=== PATIENT | female | born 1975 | race Caucasian/White ===

== ENCOUNTER 2016-11-27 12:06 | Emergency (ER) | payer MEDICAID ==
[~2016-11-27] VITALS: Ht 160 cm; Wt 111.7 kg
[~2016-11-27 12:06] MED LIST: ACET325T14 PO; DIPH25CA61 PO; DOCU-30 PO; HYDR-3240 PO; IBUP200C PO; MAGN84TA6 PO; OXYC-302 PO; POTA10TA11 PO; ROPI5TAB2 PO; SENN-1 PO; SIME80TA14 PO
[2016-11-27 12:14] VITALS: BP 177/107
[2016-11-27] MEDS ORDERED: KETOROLAC 30 MG/1 ML IM ONE (13:00)
[2016-11-27] MEDS ORDERED: KETOROLAC 30 MG/1 ML ONE (13:13)
== END 2016-11-27 14:25 | disposition home or self-care (01) ==
LOC: ED 14:10
DX: M25.562 Pain in left knee (principal); S83.92XA Sprain of unspecified site of left knee, initial encounter; G43.909 Migraine, unspecified, not intractable, without status migrainosus; Z88.0 Allergy status to penicillin; Z90.49 Acquired absence of other specified parts of digestive tract; Z88.8 Allergy status to other drugs, medicaments and biological substances; Z90.710 Acquired absence of both cervix and uterus; Z88.6 Allergy status to analgesic agent; X58.XXXA Exposure to other specified factors, initial encounter; Y93.89 Activity, other specified; Y99.8 Other external cause status; Y92.89 Other specified places as the place of occurrence of the external cause
CPT/HCPCS: 73564; 96372; 99284; J1885

== ENCOUNTER 2019-08-27 08:27 | Emergency (ER) | payer MEDICAID ==
[~2019-08-27] VITALS: Ht 160 cm; Wt 124.4 kg
[~2019-08-27 08:27] MED LIST changes: +DOCU-131 PO; -DOCU-30 PO; +IBUP-1623 PO; -IBUP200C PO; -ROPI5TAB2 PO; +ROPI5TAB4 PO; -SENN-1 PO; +SENN-92 PO
[2019-08-27 08:36] VITALS: BP 130/99
== END 2019-08-27 10:11 | disposition home or self-care (01) ==
LOC: ED 08:59
DX: J00 Acute nasopharyngitis [common cold] (principal); I11.9 Hypertensive heart disease without heart failure; E11.9 Type 2 diabetes mellitus without complications
CPT/HCPCS: 71045; 93005; 99284

== ENCOUNTER 2020-08-23 10:07 | Emergency (ER) | payer MEDICAID ==
[~2020-08-23] VITALS: Ht 160 cm; Wt 121.0 kg
[~2020-08-23 10:07] MED LIST changes: +HYDR-1067 PO; -HYDR-3240 PO; -OXYC-302 PO; +OXYC1TAB14 PO
--- NOTE | 2020-08-23 10:17 | NUR ---
EKG IN TRIAGE
--- NOTE | 2020-08-23 11:00 | NUR ---
NO ANSWER FROM LOBBY
--- NOTE | 2020-08-23 11:20 | NUR ---
assumed care of pt. pt here for c/o s/o pain/tingling sensation to R hand that started 3 or 4 days ago. pt reports that s started while she was sleeping and has progressed up her arm over the last few days pt reports that she has dropped several items today D/T tingling pt A&O x4. ambulatory and [facility] without diffiulty
[2020-08-23] MEDS ORDERED: GABA600T7 PO (11:29)
[2020-08-23] MEDS ORDERED: METF500T17 PO (11:29)
[2020-08-23] MEDS ORDERED: ROPI2TAB6 PO (11:29)
[2020-08-23] MEDS ORDERED: OMEP-110 PO (11:29)
[2020-08-23] MEDS ORDERED: ROPI4TAB6 PO (11:29)
[2020-08-23] MEDS ORDERED: FAMO20TA7 PO (11:29)
[2020-08-23] MEDS ORDERED: LISI40TA9 PO (11:29)
--- NOTE | 2020-08-23 11:35 | NUR ---
Dr. Jordan at bedside for eval
--- NOTE | 2020-08-23 11:40 | NUR ---
lab at bedside to draw
[2020-08-23 11:59] LABS: BASOPHILS % (AUTO) 1 % (0-1); EOSINOPHILS % (AUTO) 1 % (1-7); LYMPHOCYTES % (AUTO) 38 % (22-44); MEAN CORPUSCULAR HEMOGLOBIN 30.3 pg (27.0-34.8); MEAN CORPUSCULAR HGB CONC 33.9 g/dL (32.4-35.8); MEAN PLATELET VOLUME 8.5 fL (7.4-10.4); MONOCYTES % (AUTO) 7 % (2-9); NEUTROPHILS % (AUTO) 53 % (42-75); PLATELET COUNT 237 x10^3/uL (130-400); RED BLOOD COUNT 5.16 x10^6/uL (3.82-5.3); RED CELL DISTRIBUTION WIDTH 13.3 % (9.6-15.2)
[2020-08-23] MEDS ORDERED: SODIUM CHLORIDE FLUSH 10ML SYR IVF ONE (12:00)
[2020-08-23 12:01] LABS: MD NO
[2020-08-23 12:06] LABS: ALANINE AMINOTRANSFERASE 45 U/L (12-78); ALBUMIN 3.6 g/dL (3.4-5.0); ANION GAP 6 mmol/L (5-15); CALCIUM 8.6 mg/dL (8.5-10.1); CHLORIDE 110 mmol/L (98-107); CREATININE 0.67 mg/dL (0.55-1.02)
[2020-08-23 12:09] VITALS: BP 139/69
[2020-08-23] MEDS ORDERED: ALPR1TAB2 PO (12:09)
[2020-08-23] MEDS ORDERED: FLUT1DIS3 INH (12:09)
[2020-08-23] MEDS ORDERED: TRAZ-175 PO (12:09)
[2020-08-23] MEDS ORDERED: QUET25TA5 PO (12:09)
[2020-08-23] MEDS ORDERED: HYDR50CA PO (12:09)
[2020-08-23] MEDS ORDERED: ESZO1TAB8 PO (12:09)
[2020-08-23] MEDS ORDERED: BUSP7.5T5 PO (12:09)
[2020-08-23] MEDS ORDERED: ALBU1.25 NEB (12:09)
[2020-08-23] MEDS ORDERED: SUCR1TAB PO (12:09)
--- NOTE | 2020-08-23 12:09 | NUR ---
pt has been returned from CT scan. pt to BR to attempt to give urine sample
[2020-08-23 12:10] LABS: ALKALINE PHOSPHATASE 60 U/L (45-117); BILIRUBIN,TOTAL 0.3 mg/dL (0.2-1.0); TOTAL PROTEIN 7.2 g/dL (6.4-8.2); TROPONIN I < 0.015 ng/mL (0.000-0.045)
--- NOTE | 2020-08-23 12:23 | NUR ---
report to Brijesh ESCAMILLA for lunch
[2020-08-23 12:33] LABS: MICROSCOPIC NOT IND
--- NOTE | 2020-08-23 13:00 | NUR ---
pt to have splint placed
--- NOTE | 2020-08-23 13:14 | NUR ---
tech at bedside for splint application
--- NOTE | 2020-08-23 13:30 | NUR ---
awaiting D/C orders/paperwork
--- NOTE | 2020-08-23 14:00 | NUR ---
awaiting D/C orders/paperwork from . pt updated on POC. pt sitting up on gurney in no apparent distress. no family at bedside
--- NOTE | 2020-08-23 14:26 | NUR ---
ASSUME CARE FOR DISCHARGE ONLY Patient/Caregiver given discharge instructions and they have confirmed that they understand the instructions. Patient ambulatory with steady gait.
== END 2020-08-23 14:34 | disposition home or self-care (01) ==
LOC: ED 14:15
DX: G56.01 Carpal tunnel syndrome, right upper limb (principal); F17.210 Nicotine dependence, cigarettes, uncomplicated; I10 Essential (primary) hypertension; E11.9 Type 2 diabetes mellitus without complications; Z90.49 Acquired absence of other specified parts of digestive tract; Z88.0 Allergy status to penicillin; Z88.5 Allergy status to narcotic agent; Z85.42 Personal history of malignant neoplasm of other parts of uterus
CPT/HCPCS: 29125; 36415; 70450; 80053; 81003; 84484; 85025; 93005; 99406